=== PATIENT | male | born 1975 | race African-American/Black ===

== ENCOUNTER 2018-08-19 18:39 | Emergency (ER) | payer SELFPAY ==
[~2018-08-19] VITALS: Ht 180.3 cm; Wt 83.0 kg
[2018-08-19] MEDS ORDERED: ACETAMINOPHEN WITH CODEINE 300/30MG TABLET PO ONE (21:15)
[2018-08-19] MEDS ORDERED: IBUPROFEN 600MG TABLET PO ONE (21:15)
[2018-08-19 22:10] VITALS: BP 120/78
== END 2018-08-19 22:16 | disposition home or self-care (01) ==
LOC: ER 18:54
DX: R22.2 Localized swelling, mass and lump, trunk (principal); F17.210 Nicotine dependence, cigarettes, uncomplicated
CPT/HCPCS: 99283